=== PATIENT | male | born 1980 | race African-American/Black ===

== ENCOUNTER 2017-06-10 08:24 | Emergency (ER) | payer OTHER ==
[~2017-06-10] VITALS: Ht 175.3 cm; Wt 77.1 kg
--- NOTE | ~2017-06-10 | EKG ---
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
[~2017-06-10 08:24] MED LIST: NOHOMEMEDICATIONS; PREVACID 30MG C30 M1 PO; ZOFRAN ODT4 MG PO; ZPAK PO
[2017-06-10 09:08] LABS: ABSOLUTE NEUTROPHILS 13.5 thou/uL (1.4-8.2); BASOPHILS 0.4 % (0.0-2.0); EOSINOPHILS 0.4 % (0.0-3.0); HEMATOCRIT 45.5 % (42.0-52.0); LYMPHOCYTES 16.8 % (24.0-44.0); MCH 29.8 pg (26.0-34.0); MCV 90.4 fL (80.0-100.0); MONOCYTES 4.7 % (1.0-8.0); PLATELET COUNT 238 thou/uL (150-400); POLYS 77.7 % (36.0-66.0); RBC 5.03 mil/uL (4.50-6.00); WBC 17.4 thou/uL (4.0-11.0)
[2017-06-10 09:09] LABS: MANUAL DIFF NO
[2017-06-10 09:11] LABS: ANION GAP 6 mmol/L (7-16); BUN 22 mg/dL (7-18); CALCIUM 9.3 mg/dL (8.5-10.1); CHLORIDE 104 mmol/L (98-107); CO2 27 mmol/L (21-32); CREATININE 1.1 mg/dL (0.7-1.3); GLUCOSE 95 mg/dL (74-106); POTASSIUM 4.1 mmol/L (3.5-5.1); SODIUM 137 mmol/L (136-145)
[2017-06-10 09:19] LABS: TROPONIN-I < 0.04 ng/mL (<0.04-0.07)
[2017-06-10 11:19] VITALS: BP 110/62
== END 2017-06-10 11:19 | disposition home or self-care (01) ==
LOC: ER 08:24
PROVIDERS: Emergency Medicine
DX: R07.89 Other chest pain (principal); D72.829 Elevated white blood cell count, unspecified; F17.210 Nicotine dependence, cigarettes, uncomplicated

== ENCOUNTER 2017-08-10 11:15 | Emergency (ER) | payer OTHER ==
[~2017-08-10] VITALS: Ht 172.7 cm; Wt 77.1 kg
[2017-08-10 11:27] VITALS: BP 137/95
[2017-08-10] MEDS ORDERED: IBUPROFEN 800800 M1 PO (12:11)
[2017-08-10] MEDS ORDERED: TRAMADOL 50 MG50 MG PO (12:11)
[2017-08-10] MEDS ORDERED: PENICILLIN VK500 M1 PO (12:11)
== END 2017-08-10 12:48 | disposition home or self-care (01) ==
LOC: ER 11:15
DX: K02.9 Dental caries, unspecified (principal); K05.10 Chronic gingivitis, plaque induced; F17.210 Nicotine dependence, cigarettes, uncomplicated

== ENCOUNTER 2017-08-23 16:40 | Emergency (ER) | payer OTHER ==
[~2017-08-23] VITALS: Ht 172.7 cm; Wt 77.1 kg
[2017-08-23 16:40] VITALS: BP 134/81
[~2017-08-23 16:40] MED LIST changes: +IBUPROFEN 800800 M1 PO; +PENICILLIN VK500 M1 PO; +TRAMADOL 50 MG50 MG PO
[2017-08-23] MEDS ORDERED: MOBIC7.5 MG PO (17:23)
[2017-08-23] MEDS ORDERED: TRAMADOL 50 MG50 MG PO (17:23)
[2017-08-23] MEDS ORDERED: PENICILLIN V P500 MG PO (17:23)
== END 2017-08-23 17:39 | disposition home or self-care (01) ==
LOC: ER 16:40
DX: K04.7 Periapical abscess without sinus (principal); K02.9 Dental caries, unspecified; F17.210 Nicotine dependence, cigarettes, uncomplicated

== ENCOUNTER 2019-01-17 09:34 | Emergency (ER) | payer OTHER ==
[~2019-01-17] VITALS: Ht 175.3 cm; Wt 79.4 kg
[~2019-01-17 09:34] MED LIST changes: +AUGMENTIN 875-1 EACH PO; +IBUPROFEN 600600 M1 PO; +MOBIC7.5 MG PO; +PENICILLIN V P500 MG PO; +ULTRAM 50MG TAB50 MG PO
[2019-01-17 10:31] LABS: ABSOLUTE NEUTROPHILS 7.7 thou/uL (1.4-8.2); BASOPHILS 0.3 % (0.0-2.0); EOSINOPHILS 0.2 % (0.0-3.0); HEMATOCRIT 45.7 % (42.0-52.0); HEMOGLOBIN 15.3 gm/dL (14.0-18.0); MCH 30.1 pg (26.0-34.0); MCHC 33.5 g/dL (28.0-37.0); MCV 89.7 fL (80.0-100.0); MONOCYTES 4.3 % (1.0-8.0); PLATELET COUNT 200 thou/uL (150-400); POLYS 74.2 % (36.0-66.0); RDW 14.1 % (10.5-14.5); WBC 10.4 thou/uL (4.0-11.0)
[2019-01-17 10:42] LABS: ANION GAP 5 mmol/L (7-16); BUN 21 mg/dL (7-18); CALCIUM 9.5 mg/dL (8.5-10.1); CHLORIDE 105 mmol/L (98-107); CO2 30 mmol/L (21-32); CREATININE 1.1 mg/dL (0.7-1.3); GLUCOSE 100 mg/dL (74-106); POTASSIUM 4.4 mmol/L (3.5-5.1); SODIUM 140 mmol/L (136-145)
[2019-01-17 10:48] LABS: TROPONIN-I <0.06 ng/mL (<0.06)
[2019-01-17] MEDS ORDERED: VISTARIL 25 MG25 M1 PO (10:57)
[2019-01-17 11:10] VITALS: BP 130/87
--- NOTE | 2019-01-17 12:17 | EKG ---
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1980 Requested By: Kimberli Trujillo Order Number: [id number] MD: Eddie Julian Measurements Intervals [place] Rate: 49 P: 43 WI: 156 QRS: 56 QRSD: 97 T: 15 QT: 431 QTc: 390 Interpretive Statements Sinus bradycardia ST elev, probable normal early repol pattern Compared to ECG 06/10/2017 08:28:54 no significant change was found Electronically Signed On 01-17-2019 12:17:37 CDT by Eddie Julian [email or web address] ��������������������������������������������� <ELECTRONICALLY SIGNED> ���������������������������������������� By: Eddie Julian MD, [facility] ��������������������������������������������� 01/17/19 1217 1028 1028 Eddie Julian MD, [facility] /EPI
== END 2019-01-17 11:10 | disposition home or self-care (01) ==
LOC: ER 09:34
PROVIDERS: Nurse Practitioner Family
DX: F41.9 Anxiety disorder, unspecified (principal); F17.210 Nicotine dependence, cigarettes, uncomplicated